=== PATIENT | female | born 1985 | race Caucasian/White ===

== ENCOUNTER 2025-07-10 09:36 | Outpatient (CLI) | payer OTHER | END 2025-07-10 09:37 | disposition home or self-care (01) | LOC: CSHLAB 09:36 | PROVIDERS: ATTEND Student in an Organized Health Care Education/Training Program | DX: Z01.812 Encounter for preprocedural laboratory examination (principal); N92.0 Excessive and frequent menstruation with regular cycle | CPT/HCPCS: 84703; 85027; 86850; 86900; 86901 ==

== ENCOUNTER 2025-07-14 06:13 | Day surgery (SDC) | payer OTHER ==
[2025-07-10 10:08] VITALS: BMI 21.9
[2025-07-10 10:20] LABS: Hematocrit 36.3 % (34.9-44.5); Hemoglobin 11.4 g/dL (12.0-15.5); Mean Corpuscular Hemoglobin 25.7 pg (27.0-33.0); Mean Corpuscular Volume 81.9 fL (81.6-98.3); Platelet Count 272 10x3/uL (150-450); Red Blood Cell (RBC) Count 4.43 10x6/uL (3.90-5.03); White Blood Cell (WBC) Count 4.99 10x3/uL (3.5-10.5)
[2025-07-10 10:41] LABS: BHCG - Serum Negative (NEGATIVE); Pregs Control Bar Appear? YES (CONTROL BAR)
[2025-07-10 10:42] LABS: Pregs Control Background? CLEAR/WHITE (CLR/WHITE)
[2025-07-14] MEDS ORDERED: Gabapentin 300 MG CAP ONE (06:34)
[2025-07-14] MEDS ORDERED: Famotidine/PF 20 mg/2ml Vial ONE (06:35)
[2025-07-14] MEDS ORDERED: metroNIDAZOLE 500 MG (100 mL) BAG ONE (06:35)
[2025-07-14] MEDS ORDERED: Bupivacaine/Epinephrine 0.25% 30 ML VIAL ONE (07:02)
[2025-07-14] MEDS ORDERED: PROPOFOL 20 ML ONE (07:12)
[2025-07-14] MEDS ORDERED: Rocuronium Bromide 10 MG/ML (10ML VIAL) ONE (07:17)
[2025-07-14] MEDS ORDERED: Ondansetron PF 4 MG/2 ML Vial ONE ×2 (07:17→09:43)
[2025-07-14] MEDS ORDERED: SUGAMMADEX SODIUM 200 MG/2 ML VIAL ONE (07:17)
[2025-07-14] MEDS ORDERED: CEFAZOLIN 2 GM VIAL ONE (07:23)
[2025-07-14] MEDS ORDERED: Tranexamic Acid 1,000 MG/10 ML VIAL ONE (08:52)
[2025-07-14] MEDS ORDERED: HYDROmorphone 0.5 MG/0.5 ML SYRINGE ONE (09:59)
[2025-07-14] MEDS ORDERED: HYDROcodone/Acetaminophen 5/325 mg Tablet ONE (11:08)
== END 2025-07-14 13:05 | disposition home or self-care (01) ==
LOC: CSHSDC 06:13
PROVIDERS: ATTEND Student in an Organized Health Care Education/Training Program
PROC: 0UT9FZZ Resection of Uterus, Via Natural or Artificial Opening With Percutaneous Endoscopic Assistance (ICD-10-PCS; principal; 2025-07-14)
PROC: 0UT7FZZ Resection of Bilateral Fallopian Tubes, Via Natural or Artificial Opening With Percutaneous Endoscopic Assistance (ICD-10-PCS; principal; 2025-07-14)
DX: D25.1 Intramural leiomyoma of uterus (principal); D25.2 Subserosal leiomyoma of uterus; N87.0 Mild cervical dysplasia; N80.03 Adenomyosis of the uterus; F41.9 Anxiety disorder, unspecified; F32.A Depression, unspecified; Z88.6 Allergy status to analgesic agent; Z88.0 Allergy status to penicillin; Z98.890 Other specified postprocedural states; Z79.899 Other long term (current) drug therapy
CPT/HCPCS: 84703; 85027; 86850; 86900; 86901; 88307; J1100; J1171; J1308; J2250; J2405; J2550; J2704; J3010; S2900